=== PATIENT | female | born 1955 | race Caucasian/White ===

== ENCOUNTER 2019-10-23 07:36 | Emergency (ER) | payer MEDICARE ==
[~2019-10-23] VITALS: Ht 172.7 cm; Wt 100.0 kg
[2019-10-23] MEDS ORDERED: meclizine 12.5mg tablet PO ONE ×2 (08:10→10:00)
[2019-10-23] MEDS ORDERED: ondansetron 4mg rapidly disintigrating tab PO ONE (08:10)
[2019-10-23 08:49] VITALS: BP 143/78
[2019-10-23] MEDS ORDERED: ONDA4TAB6 PO (09:52)
[2019-10-23] MEDS ORDERED: MECL-159 PO (09:52)
== END 2019-10-23 10:15 | disposition home or self-care (01) ==
LOC: ER 07:38
DX: R42 Dizziness and giddiness (principal); R51 Headache; H53.2 Diplopia; Z88.2 Allergy status to sulfonamides; Z88.5 Allergy status to narcotic agent; Z79.899 Other long term (current) drug therapy
CPT/HCPCS: 70450; 93005; 99284; J8597